=== PATIENT | female | born 1950 | race Caucasian/White ===

== ENCOUNTER → 2018-10-02 | Outpatient (CLI) | payer MEDICARE, BC ==
[~2018-10-02] MED LIST: ADVIL200 MG PO; ASPIRIN 32325 MG/TAB PO; BIAXIN 500MG T500 MG PO; CALCIUM 500500 M1 PO; CARDIZEM120 MG PO; DETROL 2MG TAB2 MG PO; DOXYCYCLINE 50M50 MG PO; DYMISTA1 SPR NS; FLOVENT 110MCG7.9 GM IH; GENTAMICIN180 MG/502 NS; LUTEIN20 M1 PO; MUCINEX D1 TER PO; MULTI VITAMINS1 TAB PO; OSCAL 500 TAB500 MG; OSTEOMATRIX PO; PREDNISONE20 MG PO; PRILOSEC 20MG20 MG PO; SANCTURA XR60 M1 PO; SINGULAIR 110 MG/TAB PO; VESICARE10 MG PO; VITAMIN B COMPL1 TA1 PO; ZYRTEC 10MG10 MG PO; [UNRECOGNIZED DRUG - OTHER]; [UNRECOGNIZED DRUG - OTHER] PO; osteo matrix
== END ==
LOC: COL.RAD 07:16
DX: K76.0 Fatty (change of) liver, not elsewhere classified (principal)

== ENCOUNTER → 2019-06-10 | Outpatient (CLI) | payer MEDICARE, BC | LOC: MC.RAD 11:10 | DX: Z12.31 Encounter for screening mammogram for malignant neoplasm of breast (principal); N64.89 Other specified disorders of breast ==

== ENCOUNTER → 2019-06-18 | Outpatient (CLI) | payer MEDICARE, BC | LOC: MC.RAD 13:42 | DX: N64.89 Other specified disorders of breast (principal) ==

== ENCOUNTER → 2020-02-23 | Outpatient (CLI) | payer MEDICARE, BC | LOC: MC.RAD 09:00 | DX: N64.89 Other specified disorders of breast (principal) | CPT/HCPCS: G0279 ==

== ENCOUNTER → 2020-07-19 | Outpatient (CLI) | payer MEDICARE, BC | LOC: MC.RAD 08:35 | DX: Z12.31 Encounter for screening mammogram for malignant neoplasm of breast (principal) ==